=== PATIENT | female | born 1970 | race Hispanic/Latino ===

== ENCOUNTER 2018-05-09 04:41 | Observation (INO) | payer BC ==
[~2018-05-09] VITALS: Ht 152.4 cm; Wt 124.8 kg
[~2018-05-09 04:41] MED LIST: BENZONATATE100 MG PO; CETIRIZINE HCL10 M1 PO; LEVOTHYROXINE50 MCG PO; LISINOPRIL10 MG PO; METFORMIN HCL500 MG PO; PRILOSEC10 M1 PO
[2018-05-09 05:37] LABS: BASOPHILS # (AUTO) 0.1 (0.0-0.1); BASOPHILS % 0.4 % (0.0-1.0); EOSINOPHILS # (AUTO) 0.1 (0.0-0.4); EOSINOPHILS % 0.5 % (0.0-6.0); HEMATOCRIT 44.2 % (34.2-44.1); HEMOGLOBIN 14.5 g/dL (12.0-16.0); LYMPHOCYTES # (AUTO) 1.5 (1.0-3.2); LYMPHOCYTES % 11.3 % (18.0-39.1); MEAN CORPUSCULAR HEMOGLOBIN 28.5 pg (28-32); MEAN CORPUSCULAR HGB CONC 32.8 g/dL (31-35); MONOCYTES # (AUTO) 0.6 (0.2-0.8); MONOCYTES % 4.3 % (4.4-11.3); NEUTROPHILS # (AUTO) 11.3 (2.1-6.9); NEUTROPHILS % 83.1 % (38.7-80.0); PLATELET COUNT 338 x10e3/uL (140-360); RED BLOOD COUNT 5.08 x10e6/uL (3.6-5.1); RED CELL DISTRIBUTION WIDTH 13.2 % (11.7-14.4)
[2018-05-09] MEDS ORDERED: DICYCLOMINE HCL 20 MG/2 ML VIAL IM ONE ×2 (05:42→07:00)
[2018-05-09] MEDS ORDERED: ONDANSETRON HCL INJ 2MG/ML 2ML 2 MG/ML VIAL ONE (05:43)
[2018-05-09 05:58] LABS: ALANINE AMINOTRANSFERASE 50 IU/L (0-55); ALBUMIN 3.5 g/dL (3.5-5.0); ALBUMIN/GLOBULIN RATIO 0.8 (0.8-2.0); ALKALINE PHOSPHATASE 75 IU/L (40-150); ANION GAP 13.8 mmol/L (8-16); BLOOD UREA NITROGEN 9 mg/dL (7-26); BUN/CREATININE RATIO 12 (6-25); CALCIUM 9.4 mg/dL (8.4-10.2); CARBON DIOXIDE 23 mmol/L (22-29); CHLORIDE 108 mmol/L (98-107); CREATININE, SERUM 0.75 mg/dL (0.57-1.11); EST GLOMERULAR FILTRATION RATE > 60 ML/MIN (60-); GLUCOSE 123 mg/dL (74-118); LIPASE 28 U/L (8-78); POTASSIUM 3.8 mmol/L (3.5-5.1); SODIUM 141 mmol/L (136-145)
[2018-05-09 06:19] LABS: BILIRUBIN,URINE NEGATIVE (NEGATIVE); CLARITY,URINE CLEAR (CLEAR); COLOR,URINE YELLOW (YELLOW); KETONES,URINE NEGATIVE (NEGATIVE); LEUKOCYTE ESTERASE ,URINE NEGATIVE (NEGATIVE); NITRITE,URINE NEGATIVE (NEGATIVE); PROTEIN,URINE DIPSTICK NEGATIVE (NEGATIVE); URINE UROBILINOGEN 0.2 mg/dL (0.2 - 1)
[2018-05-09 06:21] LABS: BACTERIA,URINE MANY /HPF; EPITHELIAL CELLS,URINE FEW /LPF; MUCUS,URINE MANY (RARE); RBC,URINE 0-5 /HPF (0-5); WBC,URINE (MAN) 0-5 /HPF (0-5)
[2018-05-09] MEDS ORDERED: ONDANSETRON HCL INJ 2MG/ML 2ML 2 MG/ML VIAL IV STA (06:46)
[2018-05-09] MEDS ORDERED: FAMOTIDINE 20 MG/2 ML VIAL IV STA (08:16)
[2018-05-09] MEDS ORDERED: KETOROLAC TROMETHAMINE 30 MG/ML VIAL IV STA (08:16)
--- NOTE | 2018-05-09 08:47 | Diagnostic Imaging Report ---
EXAM: CT Abdomen and Pelvis WITHOUT contrast INDICATION: Abdominal pain COMPARISON: None. TECHNIQUE: Abdomen and pelvis were scanned utilizing a multidetector helical scanner from the lung base to the pubic symphysis without administration of IV contrast. Absence of intravenous contrast decreases sensitivity for detection of focal lesions and vascular pathology. Coronal and sagittal reformations were obtained. Routine protocol was performed. Dose modulation, iterative reconstruction, and/or weight based adjustment of the mA/kV was utilized to reduce the radiation dose to as low as reasonably achievable. IV CONTRAST: None. ORAL CONTRAST: 900 cc Redicat RADIATION DOSE: Total DLP: 845.47 mGy*cm Estimated effective dose: (DLP x 0.015 x size factor) mSv COMPLICATIONS: None FINDINGS: LINES and TUBES: None. LOWER THORAX: Lung bases clear. Heart size normal. HEPATOBILIARY: Diffuse low density liver compatible with steatosis. No focal hepatic lesions. No biliary ductal dilation. GALLBLADDER: Surgical absence of the gallbladder with cholecystectomy clips. SPLEEN: No splenomegaly. PANCREAS: No focal masses or ductal dilatation. ADRENALS: No adrenal nodules KIDNEYS/URETERS: No hydronephrosis. No cystic or solid mass lesions. No stones. GI TRACT: No abnormal distention, wall thickening, or evidence of bowel obstruction. The appendix is dilated measuring 9 mm, without significant surrounding inflammation. There is no air in the appendiceal lumen. There is borderline wall thickening measuring 3 mm. PELVIC ORGANS/BLADDER: Urinary bladder appears unremarkable. Uterus is anteverted with lobulated margin likely representing uterine fibroid. No discrete abnormal mass or fluid collection in the pelvis. LYMPH NODES: No lymphadenopathy. VESSELS: Unenhanced abdominal aorta unremarkable with no aneurysm. PERITONEUM / RETROPERITONEUM: No pneumoperitoneum or ascites. BONES: No acute or suspicious bony lesions. SOFT TISSUES: Superficial surrounding soft tissue unremarkable. The findings were discussed with Dr. López in the emergency department on 05/09/2018 at 8:40 AM. IMPRESSION: 1. There is mild distention of the appendix measuring 9 mm diameter. Borderline wall thickening with no air in the lumen. There is no surrounding inflammatory stranding. These findings are nonspecific but may be seen with early appendicitis, especially if supported by clinical and laboratory findings. 2. No other CT evidence for acute abdominal or pelvic pathology. Staff: Feroz Signed by: Dr. Lazaro Redman M.D. on 05/09/2018 8:43 AM
[2018-05-09] MEDS: SODIUM CHLORIDE 0.9% 1000ML 1,000 ML IV SCH ×2 (09:18→18:15)
[2018-05-09] MEDS ORDERED: PIPER-TAZ 3.375 GM 50 ML IV STA (09:18)
--- OUTSIDE RECORDS SUMMARY | 2018-05-09 09:28 | XMS REPORT ---
Author Author [facility] Address Unknown Phone Unavailable Care Team Providers Care Tag Writer Name Role Phone Nubia MORALES Unavailable Unavailable Problems This patient has no known problems. Allergies, Adverse Reactions, Alerts This patient has no known allergies or adverse reactions. Medications This patient has no known medications. Results Test Description Test Time Test Comments Text Results Atomic Results Result Comments CT ABDOMEN/PELVIS WO 2018-05-09 08:13:00 [facility] [address] [address] Patient Name: DARIUS LIMON MR #: [id number] : 1970 Age/Sex: 48/F Req #: [id number] Adm Physician: Ordered by: ALEC EAST MD Report #: [id number] Location: ER Room/Bed: Procedure: [id number] CT/CT ABDOMEN/PELVIS WO Exam Date: 05/09/18 Exam Time: 0710 REPORT STATUS: Signed EXAM: CT Abdomen and Pelvis WITHOUT contrast IND ICATION: Abdominal pain COMPARISON: None. TECHNIQUE: Abdomen and pelvis were scanned utilizing a multidetector helical scanner from the lung base to the pubic symphysis without administration of IV contrast. Absence of intravenous contrast decreases sensitivity for detection of focal lesions and vascular pathology. Coronal and sagittal reformations were obtained. Routine protocol was performed. Dose modulation, iterative reconstruction, and/or weight based adjustment of the mA/kV was utilized to reduce the radiation dose to as low as reasonably achievable. IV CONTRAST: None. ORAL CONTRAST: 900 cc Redicat RADIATION DOSE: Total DLP: 845.47 mGy*cm Estimated effective dose: (DLP x 0.015 x size factor) mSv COMPLICATIONS: None FINDINGS: LINES and TUBES: None. LOWER THORAX: Lung bases clear. Heart size normal. HEPATOBILIARY: Diffuse low density liver compatible with steatosis. No focal hepatic lesions. No biliary ductal dilation. GALLBLADDER: Surgical absence of the gallbladder with cholecystectomy clips. SPLEEN: No splenomegaly. PANCREAS: No focal masses or ductal dilatation. ADRENALS: No adrenal nodules KIDNEYS/URETERS: No hydronephrosis. No cystic or solid mass lesions. No stones. GI TRACT: No abnormal distention, wall thickening, or evidence of bowel obstruction. The appendix is dilated measuring 9 mm, without significant surrounding inflammation. There is no air in the appendiceal lumen. There is borderline wall thickening measuring 3 mm. PELVIC ORGANS/BLADDER: Urinary bladder appears unremarkable. Uterus is anteverted with lobulated margin likely representing uterine fibroid. No discrete abnormal mass or fluid collection in the pelvis. LYMPH NODES: No lymphadenopathy. VESSELS: Unenhanced abdominal aorta unremarkable with no aneurysm. PERITONEUM / RETROPERITONEUM: No pneumoperitoneum or ascites. BONES: No acute or suspicious bony lesions. SOFT TISSUES: Superficial surrounding soft tissue unremarkable. The findings were discussed with Dr. López in the emergency department on 05/09/2018 at 8:40 AM. IMPRESSION: 1. There is mild distention of the appendix measuring 9 mm diameter. Borderline wall thickening with no air in the lumen. There is no surrounding inflammatory stranding. These findings are nonspecific but may be seen with early appendicitis, especially if supported by clinical and laboratory findings. 2. No other CT evidence for acute abdominal or pelvic pathology. Staff: Feroz Signed by: Dr. Kar Carrasco M.D. on 05/09/2018 8:43 AM Dictated By: KAR CARRASCO MD 2 Transcribed By: TAYO on 05/09/18842 COPY TO: ALEC EAST MD
[2018-05-09] MEDS ORDERED: MORPHINE SULFATE INJ 4 MG/ML INJ 1ML IV PRN (09:30)
[2018-05-09] MEDS ORDERED: ONDANSETRON HCL INJ 2MG/ML 2ML 2 MG/ML VIAL IV PRN (09:30)
[2018-05-09] MEDS ORDERED: MORPHINE SULFATE 2 MG/ML SYR 1ML IV PRN (09:30)
--- NOTE | 2018-05-09 10:03 | NUR ---
report received from [facility] for patient transfer.
--- NOTE | 2018-05-09 10:22 | NUR ---
patient arrived on floor via wheelchair. Patient in no distress, at the bedside. Call cadet within reach and bed in lowest position.
[2018-05-09 10:34] VITALS: BP 150/76
[2018-05-09 10:37] VITALS: BP 150/76
[2018-05-09 10:50] VITALS: BP 150/76
[2018-05-09 11:54] VITALS: BP 140/73
[2018-05-09 13:33] LABS: CHOL/HDL RATIO 3.4 (3.0-3.6)
--- NOTE | 2018-05-09 15:50 | NUR ---
report given to [facility] for patient transfer. Patient aware of change, alert and oriented. Patient transferred via wheelchair. Call cadet within reach and bed in lowest position.
[2018-05-09 16:00] VITALS: BP 131/70
--- NOTE | 2018-05-09 16:00 | NUR ---
Received patient from observation, patient alert and oriented x3, independent, IVF NS infusing, denies pain, oriented to room and use of call light. Belongings and call light within reach, will continue to monitor.
--- NOTE | 2018-05-09 19:38 | Consultation ---
DATE OF CONSULTATION: 05/09/2018 CHIEF COMPLAINT: Epigastric pain and emesis. HISTORY OF PRESENT ILLNESS: The patient is a 48-year-old female with recurrent epigastric abdominal pains for a month with vomiting occurring probably 6-7 hours postprandially. She denies hematemesis. No fever, chills, or diarrhea. PAST MEDICAL HISTORY: Positive for known hiatal hernia, diabetes, hypertension, morbid obesity. PAST SURGICAL HISTORY: Positive for cholecystectomy. ALLERGIES: SHE HAS ALLERGIC REACTION TO IODINE. SOCIAL HABITS: No smoking or alcohol abuse. REVIEW OF SYSTEMS: No chest pain. No shortness of breath or cough. PHYSICAL EXAMINATION: VITAL SIGNS: Stable. She is afebrile. GENERAL: She is awake, alert, in mild discomfort. HEENT: Sclerae anicteric. NECK: Supple. LUNGS: Clear. HEART: Regular rate and rhythm. ABDOMEN: Soft with some guarding in the epigastrium. No rebound. No right lower quadrant. No McBurney tenderness. EXTREMITIES: No cyanosis, edema. LABORATORY DATA: White cell count is 13.6, hemoglobin of 14, platelet count 338. Creatinine of 0.7. Liver function tests within normal limits. Lipase is 28. Abdominal CT show mild distention of the appendix at 9 mm without inflammatory changes. ASSESSMENT: Recurrent epigastric pain in patient with known hiatal hernia and reflux esophagitis, currently not on PPI. At this point, there is low index of suspicion for appendicitis. PLAN: Clear liquid diet. Consult GI. MD LISSETTE Rick/MERLY /[id number]
[2018-05-09 20:00] VITALS: BP 141/63
--- NOTE | 2018-05-09 20:00 | NUR ---
INITIAL ASSESSMENT COMPLETE, CALL LIGHT IN REACH, FAMILY AT BEDSIDE, VS STABLE, NO DISTRESS NOTED,
--- NOTE | 2018-05-09 20:02 | History and Physical ---
CHIEF COMPLAINT: Abdominal pain. HISTORY OF PRESENT ILLNESS: Ms. Ramesh is a 48-year-old lady with past medical history as listed below, presented with complaints of abdominal pain. The patient states that she started experiencing abdominal pain at 1:00 a.m., she states it was mostly in the epigastric and upper abdominal region and so she decided to come to the hospital. She reportedly has had similar episodes in March and then two weeks after that she was noted to have an appendix measuring 9 mm and so she was admitted to the hospital. She normally sees . She denies any chest pain, shortness of breath, or palpitations. No fever. The patient has some nausea, vomiting, and diarrhea. REVIEW OF SYSTEMS: CONSTITUTIONAL: Has some fatigue and weakness. HEENT: No headache, blurring of vision, seizure, or syncope. CARDIOVASCULAR: No chest pain, dyspnea, orthopnea, or PND. RESPIRATORY: No cough, fever, or expectoration. GI: Had abdominal pain, nausea, vomiting, and diarrhea. : No dysuria, frequency, or incontinence. ALLERGIES: IODINE. MEDICATIONS: See list. PAST MEDICAL HISTORY: 1. History of hypertension. 2. History of prediabetes. PAST SURGICAL HISTORY: History of cholecystectomy. SOCIAL HISTORY: Does not smoke. Drinks alcohol occasionally. FAMILY HISTORY: There is family history of hypertension and diabetes. PHYSICAL EXAMINATION: GENERAL: Obese lady, alert, oriented, not in any obvious distress. VITAL SIGNS: Heart rate is 61, blood pressure is 140/72, respiratory rate 18, temperature is 97.2. HEENT: Atraumatic. NECK: No JVD, bruit, thyromegaly, or lymphadenopathy. CARDIOVASCULAR: First and second heart sounds heard. No murmurs, rubs, or gallops appreciated. CHEST: Decreased air entry at the bases. No adventitious sounds appreciated. ABDOMEN: Obese, distended, nontender. EXTREMITIES: No edema. LABS: WBC is 13.6, hemoglobin 14.5, hematocrit 42.2, platelets are 338. Sodium is 141, potassium 3.8, chloride is 108, bicarb is 23, BUN is 9, creatinine is 0.7. AST is 41, ALT is 50, alkaline phosphatase is 75, total bilirubin is 0.4, lipase is 28. IMPRESSION: 1. Abdominal pain. 2. Dilated appendix. 3. History of hypertension. 4. History of diabetes mellitus. 5. Obesity. 6. Leukocytosis. PLAN: 1. The patient has been seen by surgeon, does not think it is appendicitis. 2. We will get a GI consult. 3. Currently, the patient is afebrile. 4. Continue with home medications. 5. Further workup depending on clinical course. 6. Discussed my impression and plan of management with the patient and she understands. Florentin Watson MD SC/MODL /[id number]
--- NOTE | 2018-05-09 20:40 | NUR ---
DR. CHARLES HERE TO SEE PT, NEW ORDERS RECEIVED, PROCEDURE IN AM
[2018-05-10] VITALS: BP 132/61
--- NOTE | 2018-05-10 00:30 | NUR ---
pt in bed, no distress noted, call light in reach, vs stable
[2018-05-10] MEDS: SODIUM CHLORIDE 0.9% 1000ML 1,000 ML IV SCH ×2 (01:18→09:18)
--- NOTE | 2018-05-10 03:54 | Consultation ---
DATE OF CONSULTATION: 05/09/2018 GI Consult Note REASON FOR CONSULTATION: Intermittently persistent epigastric pain for last 2 months. HISTORY OF PRESENTING ILLNESS: A 48-year-old very pleasant female with obesity, got admitted with intermittently persistent mid-epigastric pain. She has a history of hiatal hernia. She has had upper endoscopy in 2017 by my associate, Dr. Vargas. She consumes lots of ibuprofen on a regular basis. So, Dr. Mata has seen the patient and recommended to get upper endoscopy. The patient is status post cholecystectomy. Reports no lower GI symptoms. REVIEW OF SYSTEMS: A 12-point system reviewed, symptomatology is limited as per HPI. PAST MEDICAL HISTORY: Hypertension and prediabetes. PAST SURGICAL HISTORY: Cholecystectomy. FAMILY HISTORY: Noncontributory from GI standpoint. SOCIAL HISTORY: No smoking, seldom drinks alcohol. No illicit drug use. HOME MEDICATIONS: Levothyroxine, lisinopril, metformin, and omeprazole. INPATIENT MEDICATIONS: Reviewed as per MAR. PHYSICAL EXAMINATION: VITAL SIGNS: Temperature 98.1, pulse 66, respirations 19, blood pressure 141/63, and oxygen saturation 94% on room air. GENERAL: Not in any acute distress. Obese body habitus. HEENT: Oral mucosa is moist. Anicteric sclerae. CVS: S1 and S2 regular. LUNGS: Bilaterally grossly clear. ABDOMEN: Obese, soft. Mild epigastric tenderness on deep palpation without rebound, rigidity, or guarding. Positive bowel sounds. EXTREMITIES: Warm. No leg edema. LABORATORY DATA: WBC 13.60, hemoglobin 14.5, hematocrit 44.2, and platelet count 338. Electrolytes normal. Liver enzymes normal. Urinalysis negative. CT of the abdomen and pelvis without contrast showed mild distention of the appendix measuring about 9 mm in diameter. Borderline wall thickening with no air in the lumen. No CT evidence of any other acute abdominal or pelvic pathology. IMPRESSION: 1. Mid-epigastric pain in the setting of regular use of ibuprofen. This is certainly concerning for possible underlying peptic ulcer disease. 2. CT of the abdomen is showing possible appendicitis. However, Dr. Mata has evaluated the patient and he has ruled out any appendicitis. PLAN: Continuing present medication. Avoid NSAIDs. N.p.o. possible midnight. EGD tomorrow. I thank Dr. Mata for allowing me to participate in the care of this patient. MD MELANI Zamudio /[id number]
[2018-05-10 04:00] VITALS: BP 114/59
[2018-05-10 05:59] LABS: BASOPHILS # (AUTO) 0.1 (0.0-0.1); BASOPHILS % 0.6 % (0.0-1.0); EOSINOPHILS # (AUTO) 0.6 (0.0-0.4); EOSINOPHILS % 7.4 % (0.0-6.0); HEMATOCRIT 37.5 % (34.2-44.1); HEMOGLOBIN 12.1 g/dL (12.0-16.0); LYMPHOCYTES # (AUTO) 2.6 (1.0-3.2); LYMPHOCYTES % 34.1 % (18.0-39.1); MEAN CORPUSCULAR HEMOGLOBIN 28.9 pg (28-32); MEAN CORPUSCULAR HGB CONC 32.3 g/dL (31-35); MEAN CORPUSCULAR VOLUME 89.5 fL (81-99); MONOCYTES # (AUTO) 0.7 (0.2-0.8); MONOCYTES % 8.5 % (4.4-11.3); NEUTROPHILS # (AUTO) 3.8 (2.1-6.9); PLATELET COUNT 263 x10e3/uL (140-360); RED BLOOD COUNT 4.19 x10e6/uL (3.6-5.1); RED CELL DISTRIBUTION WIDTH 13.5 % (11.7-14.4)
[2018-05-10 06:16] LABS: ALANINE AMINOTRANSFERASE 39 IU/L (0-55); ALBUMIN 2.8 g/dL (3.5-5.0); ALBUMIN/GLOBULIN RATIO 0.8 (0.8-2.0); ALKALINE PHOSPHATASE 61 IU/L (40-150); ANION GAP 9.7 mmol/L (8-16); BLOOD UREA NITROGEN 6 mg/dL (7-26); BUN/CREATININE RATIO 9 (6-25); CALCIUM 8.7 mg/dL (8.4-10.2); CARBON DIOXIDE 24 mmol/L (22-29); CHLORIDE 110 mmol/L (98-107); EST GLOMERULAR FILTRATION RATE > 60 ML/MIN (60-); GLUCOSE 92 mg/dL (74-118); POTASSIUM 3.7 mmol/L (3.5-5.1); SODIUM 140 mmol/L (136-145)
--- NOTE | 2018-05-10 06:27 | Diagnostic Imaging Report ---
Examination: Single AP view of the chest. COMPARISON: Portable chest 08/23/2015 INDICATION: Epigastric pain IMPRESSION: Exam limited by soft tissue attenuation. 1. Lines and Tubes: None 2. Lungs are grossly clear. No consolidation or effusion. 3. Cardiomediastinal silhouette is normal. Pulmonary vasculature is normal. 4. No acute bony abnormalities. Signed by: Dr. Mario Alberto Elder M.D. on 05/10/2018 6:23 AM
--- NOTE | 2018-05-10 06:35 | NUR ---
pt in bed, easily awaken, no distress noted, vs stable
--- NOTE | 2018-05-10 07:19 | NUR ---
rcvd patient this morning in report. Patient is awake in chair, awaiting procedure. No new S&S noted.
--- NOTE | 2018-05-10 07:30 | NUR ---
Patient went to endo at this time.
[2018-05-10 07:44] VITALS: BP 151/70
--- NOTE | 2018-05-10 08:57 | NUR ---
patient returned to unit at this time. Patient A&Ox3, no reports of pain.
[2018-05-10 09:00] VITALS: BP 134/65
[2018-05-10 09:26] VITALS: BP 134/65
[2018-05-10] MEDS ORDERED: PANTOPRAZOLE SO40 MG PO (10:20)
--- NOTE | 2018-05-10 10:50 | NUR ---
IV removed at this time. Catheter tip intact. Pressure dressing applied.
--- NOTE | 2018-05-10 11:12 | NUR ---
Patient discharged from facility at this time. Walked out with staff assistance. Refused wheelchair assistance. Reviewed discharge instructions, rx's given, no questions reported.
[2018-05-10] MEDS ORDERED: PROPOFOL IV EMULSION 10 MG/ML 20 ML VIAL ONE (17:51)
[2018-05-10] MEDS ORDERED: LIDOCAINE HCL 2% LOCAL INJ 5 ML SDV VIAL INJ ONE (17:51)
[2018-05-10] MEDS ORDERED: FENTANYL CITRATE/PF 100MCG/2 ML INJ ONE (18:20)
[2018-05-10] MEDS ORDERED: MIDAZOLAM HCL 2 MG/2 ML VIAL ONE (18:20)
[2018-05-11] MEDS ORDERED: PANTOPRAZOLE SOD 40 MG TABEC PO SCH (07:30)
== END 2018-05-10 11:08 | disposition home or self-care (01) ==
LOC: ER 04:41 → ERHOLD 09:26 → IMCU 10:35 → MED/SURG 15:55
DX: K38.8 Other specified diseases of appendix (principal); I10 Essential (primary) hypertension; E11.9 Type 2 diabetes mellitus without complications; E66.9 Obesity, unspecified; D72.829 Elevated white blood cell count, unspecified; Z82.49 Family history of ischemic heart disease and other diseases of the circulatory system; Z83.3 Family history of diabetes mellitus; K44.9 Diaphragmatic hernia without obstruction or gangrene; K21.0 Gastro-esophageal reflux disease with esophagitis; E03.9 Hypothyroidism, unspecified; Z68.43 Body mass index [BMI] 50.0-59.9, adult; K29.50 Unspecified chronic gastritis without bleeding
CPT/HCPCS: 36415 ×2; 43239; 71045; 74176; 80053 ×2; 80061; 81001; 81025; 82948; 83690; 85025 ×2; 88305; 88312; 93005; 96360; 96361; 99284; G0378 ×2; J0500; J1885; J2001; J2250; J2405; J2543; J2704; J7030; 88304

== ENCOUNTER 2019-04-24 12:45 | Emergency (ER) | payer BC ==
[~2019-04-24] VITALS: Ht 152.4 cm; Wt 124.7 kg
[~2019-04-24 12:45] MED LIST changes: +PANTOPRAZOLE SO40 MG PO
--- NOTE | 2019-04-24 15:36 | Diagnostic Imaging Report ---
EXAM: CT Abdomen and Pelvis WITHOUT contrast INDICATION: Abdominal pain ^possible hernia, IODINE ALLERGY ^[id number] ^[id number] COMPARISON: None. TECHNIQUE: Abdomen and pelvis were scanned utilizing a multidetector helical scanner from the lung base to the pubic symphysis without administration of IV contrast. Absence of intravenous contrast decreases sensitivity for detection of focal lesions and vascular pathology. Coronal and sagittal reformations were obtained. Routine protocol was performed. IV CONTRAST: None ORAL CONTRAST: Isovue COMPLICATIONS: None RADIATION DOSE: Total DLP: 827 mGy*cm Estimated effective dose: (DLP x 0.015 x size factor) mSv CTDIvol has been reviewed. It is below the limits set by the Radiation Protocol Committee (RPC). Dose modulation, iterative reconstruction, and/or weight based adjustment of the mA/kV was utilized to reduce the radiation dose to as low as reasonably achievable. FINDINGS: LINES and TUBES: None. LOWER THORAX: The lung bases are clear. No pleural effusion. Probable tiny hiatal hernia. HEPATOBILIARY: No gross hepatic lesion is identified overlying for lack of intravenous contrast. No biliary ductal dilatation. GALLBLADDER: Surgically absent. SPLEEN: No splenomegaly. PANCREAS: No focal masses or ductal dilatation. ADRENALS: No adrenal nodules KIDNEYS/URETERS: No hydronephrosis. No cystic or solid mass lesions. No stones. GI TRACT: No abnormal distention, wall thickening, or evidence of bowel obstruction. The appendix is not discretely identified. PELVIC ORGANS/BLADDER: Grossly unremarkable. LYMPH NODES: No lymphadenopathy. VESSELS: Unremarkable. PERITONEUM / RETROPERITONEUM: No free air or fluid. BONES: No acute osseous abnormality. Mild multilevel thoracolumbar degenerative change. SOFT TISSUES: Unremarkable. No hernia. IMPRESSION: No acute abdominal or pelvic abnormality is identified. Signed by: Ron Scott MD on 04/24/2019 3:34 PM
== END 2019-04-24 17:14 | disposition home or self-care (01) ==
LOC: ER 12:45
DX: R10.13 Epigastric pain (principal); K21.9 Gastro-esophageal reflux disease without esophagitis; I10 Essential (primary) hypertension; E11.9 Type 2 diabetes mellitus without complications; E78.5 Hyperlipidemia, unspecified
CPT/HCPCS: 74176; 99282